=== PATIENT | male | born 1960 | race African-American/Black ===

== ENCOUNTER 2020-09-21 19:56 | Emergency (ER) | payer MEDICAID ==
[~2020-09-21] VITALS: Ht 172.7 cm; Wt 104.3 kg
[2020-09-21 20:14] VITALS: BP 185/98
[2020-09-21] MEDS ORDERED: AMOX-430 PO (20:34)
[2020-09-21] MEDS ORDERED: TRAM50TA2 PO (20:34)
[2020-09-21] MEDS ORDERED: TRAMADOL HCL 50 MG TABLET ONE (20:42)
[2020-09-21] MEDS ORDERED: TRAMADOL HCL 50 MG TABLET PO ONE (21:00)
== END 2020-09-21 20:44 | disposition home or self-care (01) ==
LOC: ER 20:02
DX: K08.89 Other specified disorders of teeth and supporting structures (principal); I10 Essential (primary) hypertension; E11.9 Type 2 diabetes mellitus without complications; F17.200 Nicotine dependence, unspecified, uncomplicated; Z79.899 Other long term (current) drug therapy